=== PATIENT | male | born 1965 | race Caucasian/White ===

== ENCOUNTER 2023-12-12 08:12 | Outpatient (CLI) | payer BC, SELFPAY | END 2023-12-12 08:13 | disposition home or self-care (01) | LOC: NFLDREF 12-29 12:26 | PROVIDERS: PCP Physician Assistant Medical; Referring Provider Physician Assistant Medical; Visit Provider Family Medicine | DX: Z13.220 Encounter for screening for lipoid disorders (principal) | CPT/HCPCS: 80061 ==